=== PATIENT | male | born 1980 | race African-American/Black ===

== ENCOUNTER 2019-03-08 18:11 | Emergency (ER) | payer OTHER ==
[~2019-03-08] VITALS: Ht 193 cm; Wt 95.3 kg
[2019-03-08 19:01] VITALS: BP 142/92
[2019-03-08] MEDS ORDERED: LIDOCAINE 1% HCL (LOCAL ANESTH.) INJ 20ML MDV IJ ONE (20:45)
== END 2019-03-08 21:23 | disposition home or self-care (01) ==
LOC: ER 18:11
DX: L02.214 Cutaneous abscess of groin (principal); E11.9 Type 2 diabetes mellitus without complications; I10 Essential (primary) hypertension; F12.90 Cannabis use, unspecified, uncomplicated; Z90.49 Acquired absence of other specified parts of digestive tract
CPT/HCPCS: 10060; 82962; 99283; A6257